=== PATIENT | female | born 1960 | race African-American/Black ===

== ENCOUNTER 2017-03-07 11:36 | Emergency (ER) | payer OTHER ==
[2017-03-07] MEDS ORDERED: IBUPROFEN 600 MG TABLET PO ONE (13:12)
--- NOTE | 2017-03-07 13:15 | ER Document Report ---
ED General - General Chief Complaint: Leg Pain Stated Complaint: LOWER BACK AND LEG PAIN Time Seen by Provider: 03/07/17 12:24 Mode of Arrival: Ambulatory Information source: Patient Notes: 56-year-old female presents to ED for complaint of leg and lower back pain when she fell Tuesday she has a history of a stroke with right-sided weakness for 5 days ago. She states she sometimes down. States she was a patient of [facility] which is she states closed and now she does not have a primary doctor. TRAVEL OUTSIDE OF THE [place] IN LAST 30 DAYS: No - HPI Onset: Other - Tuesday Onset/Duration: Gradual, Persistent, Worse Quality of pain: Sharp, Throbbing Severity: Severe Pain Level: 5 Associated symptoms: Body/muscle aches, Other - Ribs and right hip pain fall Exacerbated by: Movement, Walking Relieved by: Denies Similar symptoms previously: Yes Recently seen / treated by doctor: No Past Medical History - General Information source: Patient - Social History Smoking Status: Current Every Day Smoker Cigarette use (# per day): Yes - 3-4 cigarettes a day Chew tobacco use (# tins/day): No Smoking Education Provided: Yes - less Then 2 minutes Frequency of alcohol use: Occasional Drug Abuse: None Occupation: Disabled Lives with: Family Family History: Arthritis, CAD, CVA, Hyperlipidemia, Hypertension, Thyroid Disfunction. denies: COPD, Malignancy Patient has suicidal ideation: No Patient has homicidal ideation: No - Past Medical History Cardiac Medical History: Reports: Hx Hypertension Pulmonary Medical History: Reports: None Neurological Medical History: Reports: Hx Cerebrovascular Accident, Hx Migraine Endocrine Medical History: Reports: Hx Hypothyroidism Renal/ Medical History: Reports: None Malignancy Medical History: Reports: None GI Medical History: Denies: Hx Colonoscopy Musculoskeltal Medical History: Reports Hx Arthritis, Reports Hx Musculoskeletal Deformity, Reports Hx Musculoskeletal Trauma Skin Medical History: Reports None Psychiatric Medical History: Reports: None Traumatic Medical History: Reports: None Infectious Medical History: Reports: None Past Surgical History: Reports: Hx Hysterectomy - Immunizations Hx Diphtheria, Pertussis, Tetanus Vaccination: No Review of Systems - Review of Systems Constitutional: No symptoms reported EENT: No symptoms reported Cardiovascular: No symptoms reported Respiratory: No symptoms reported Gastrointestinal: No symptoms reported Genitourinary: No symptoms reported Female Genitourinary: No symptoms reported Musculoskeletal: Back pain, Joint pain, Muscle pain, Muscle stiffness Skin: No symptoms reported Hematologic/Lymphatic: No symptoms reported Neurological/Psychological: No symptoms reported -: Yes All other systems reviewed and negative Physical Exam - Vital signs Vitals: Temp Pulse Resp BP Pulse Ox 98.1 F 75 20 150/74 H 94 03/07/17 11:45 03/07/17 11:45 03/07/17 11:45 03/07/17 11:45 03/07/17 11:45 Interpretation: Normal - General General appearance: Appears well, Alert - HEENT Head: Normocephalic, Atraumatic Eyes: Normal Pupils: PERRL - Respiratory Respiratory status: No respiratory distress Chest status: Nontender Breath sounds: Normal Chest palpation: Normal - Cardiovascular Rhythm: Regular Heart sounds: Normal auscultation Murmur: No - Abdominal Inspection: Normal Distension: No distension Bowel sounds: Normal Tenderness: Nontender Organomegaly: No organomegaly - Back Back: Normal, Tender - Right lateral mid back. No: Deformity/step-off, CVA tenderness, Vertebra tenderness, Scars, Scoliosis, Wounds - Extremities General upper extremity: Normal inspection, Nontender, Normal color, Normal ROM , Normal temperature General lower extremity: Normal inspection, Normal color, Normal temperature. No: Bebeto's sign Hip: Tender, Pain with ROM - Neurological Neuro grossly intact: Yes Cognition: Normal Orientation: AAOx4 [place] Coma Scale Eye Opening: Spontaneous [place] Coma Scale Verbal: Oriented Rian Coma Scale Motor: Obeys Commands Rian Coma Scale Total: 15 Speech: Normal Motor strength normal: LUE, RUE, LLE, RLE Sensory: Normal - Psychological Associated symptoms: Normal affect, Normal mood - Skin Skin Temperature: Warm Skin Moisture: Dry Skin Color: Normal Course - Re-evaluation Re-evalutation: 03/07/17 14:22 discussed xray results with patient and written report given to patient. Patient treated with Ibuprofen and percocet in the ed and sent home with small prescription for percocet. - Vital Signs Vital signs: Temp Pulse Resp BP Pulse Ox 97.6 F 62 16 149/82 H 100 03/07/17 14:47 03/07/17 14:47 03/07/17 14:47 03/07/17 14:47 03/07/17 14:47 - Diagnostic Test Radiology reviewed: Image reviewed, Reports reviewed Discharge - Discharge Clinical Impression: Fall at home Qualifiers: Encounter type: initial encounter Qualified Code(s): W19.XXXA - Unspecified fall, initial encounter Contusion of rib on right side Qualifiers: Encounter type: initial encounter Qualified Code(s): S20.211A - Contusion of right front wall of thorax, initial encounter Contusion, hip Qualifiers: Encounter type: initial encounter Laterality: right Qualified Code(s): S70.01XA - Contusion of right hip, initial encounter Condition: Stable Disposition: HOME, SELF-CARE Instructions: Family Physicians / Practices Additional Instructions: CONTUSION: Your injury has resulted in a contusion -- a crushing of the deep tissues. No injury to important structures was detected during the physician's exam. Contusions vary in the amount of pain they cause, and in the length of time required for healing. Typically, the area will become bruised, and will remain painful to touch for two or three weeks. However, most patients are back to working and playing within a few days. After the initial period of rest and cold-packs, your symptoms (together with the doctor's recommendations) will determine how rapidly you can get back to full activity. Usually this means "do what feels okay, but don't do things that hurt." If re-examination was recommended, it's important to follow up as instructed. Call the doctor or return any time if pain increases, if swelling becomes severe, if you develop numbness or weakness in an injured extremity, or if any other alarming symptoms occur. USE OF TYLENOL (ACETAMINOPHEN): Acetaminophen may be taken for pain relief or fever control. It's much safer than aspirin, offering a wider range of "safe" dosages. It is safe during . Some brand names are Tylenol, Panadol, Datril, Anacin 3, Tempra, and Liquiprin. Acetaminophen can be repeated every four hours. The following are maximum recommended dosages: WEIGHT Dose Drops Elixir Chewable( 80mg) (LBS.) drprs=droppers tsp=teaspoon 6 40 mg 0.4 ml (1/2) 6-11 80 mg 0.8 ml (full) tsp 1 tab 12-16 120 mg 1 1/2 drprs 3/4 tsp 1 1/2 tabs 17-23 160 mg 2 drprs 1 tsp 2 tabs 24-30 240 mg 3 drprs 1 1/2 tsp 3 tabs 30-35 320 mg 2 tsp 4 tabs 36-41 360 mg 2 1/4 tsp 4 1/2 tabs 42-47 400 mg 2 1/2 tsp 5 tabs 48-53 480 mg 3 tsp 6 tabs 54-59 520 mg 3 1/4 tsp 6 1/2 tabs 60-64 560 mg 3 1/2 tsp 7 tabs 65-70 600 mg 3 3/4 tsp 7 1/2 tabs 71-76 640 mg 4 tsp 8 tabs 77-82 720 mg 4 1/2 tsp 9 tabs 83-88 800 mg 5 tsp 10 tabs >89 pounds or adults 650 mg to 900 mg Acetaminophen can be repeated every four hours. Maximum dose not to exceed 4000 mg a day. These maximum recommended dosages are slightly higher than the dosages written on the product container, but these dosages are very safe and below the toxic dosage for acetaminophen. ICE PACKS: Apply ice packs frequently against the painful area. Many different schedules are recommended, such as "20 minutes on, 20 minutes off" or "one hour ice, two hours rest." If you need to work, you may need to go longer between ice treatments. You should plan to have the area ice packed AT LEAST one fourth of the time. The ice should be applied over the wrap, tape, or splint, or over a layer of cloth -- not directly against the skin. Some ice bags have a built-in cloth and can be put directly on the skin. WARM PACKS: After approximately two days, apply gentle heat (such as a heating pad or hot water bottle) for about 20 to 30 minutes about every two hours -- at least four times daily. Warmth and elevation will help you make a more rapid recovery , and will ease the pain considerably. Do not use HOT heat, and never apply heat for longer than 30 minutes. The continuous heat can invisibly damage skin and muscles -- even when no burn is seen on the surface. Damaged muscles can make you MORE sore. ORAL NARCOTIC MEDICATION: You have been given a prescription for pain control. This medication is a narcotic. It's best taken with food, as nausea can result if taken on an empty stomach. Don't operate machinery or drive within six hours of taking this medication. Do not combine this medicine with alcohol, or with any medication which can cause sedation (such as cold tablets or sleeping pills) unless you get permission from the physician. Narcotics tend to cause constipation. If possible, drink plenty of fluids and eat a diet high in fiber and fruits. FOLLOW-UP CARE: If you have been referred to a physician for follow-up care, call the physician s office for an appointment as you were instructed or within the next two days. If you experience worsening or a significant change in your symptoms, notify the physician immediately or return to the Emergency Department at any time for re-evaluation. Prescriptions: Oxycodone HCl/Acetaminophen [Percocet 5-325 mg Tablet] 1 tab PO Q6HP PRN #7 tablet PRN Reason: Forms: Elevated Blood Pressure, Smoking Cessation Education
--- NOTE | 2017-03-07 13:40 | RADIOLOGY REPORT (SQ) ---
EXAM DESCRIPTION: RIBS RIGHT W/PA CHEST COMPLETED DATE/TIME: 03/07/2017 1:18 pm REASON FOR STUDY: fall with pain COMPARISON: None. TECHNIQUE: Frontal view of the chest and additional views of the right ribs acquired. NUMBER OF VIEWS: Four view. LIMITATIONS: None. FINDINGS: FRONTAL CXR: No pneumothorax. No pleural effusion. No atelectasis or infiltrates. RIBS: No displaced rib fractures. No lytic or blastic bony lesions. OTHER: No other significant finding. IMPRESSION: NO PNEUMOTHORAX. NO DISPLACED RIB FRACTURES. COMMENT: SITE OF TRAUMA/COMPLAINT MARKED/STAMP COMPLETED: YES. TECHNICAL DOCUMENTATION: JOB ID: [id number] [employer]- All Rights Reserved
--- NOTE | 2017-03-07 13:40 | RADIOLOGY REPORT (SQ) ---
EXAM DESCRIPTION: HIP RIGHT AP/LATERAL COMPLETED DATE/TIME: 03/07/2017 1:18 pm REASON FOR STUDY: fall with pain COMPARISON: None. NUMBER OF VIEWS: Two views. TECHNIQUE: AP pelvis and additional frog-leg view of the right hip. LIMITATIONS: None. FINDINGS: MINERALIZATION: Normal. RIGHT HIP: No fracture or dislocation. No worrisome bone lesions. LEFT HIP: No fracture or dislocation. No worrisome bone lesions. PUBIS AND ISCHIUM: No fracture. PELVIS: No fracture. SACRUM: No fracture or dislocation. No worrisome bone lesions. LOWER LUMBAR SPINE: No fracture or dislocation. No worrisome bone lesions. No significant disc disea se. SOFT TISSUES: No findings. OTHER: No other significant finding. IMPRESSION: NEGATIVE STUDY OF THE RIGHT HIP. NO RADIOGRAPHIC EVIDENCE OF ACUTE INJURY. TECHNICAL DOCUMENTATION: JOB ID: [id number] [employer]- All Rights Reserved
[2017-03-07] MEDS ORDERED: OXYCODONE-ACETAMINOPHEN 5-325 MG TABLET PO ONE (14:08)
[2017-03-07 14:53] VITALS: BP 149/82
== END 2017-03-07 14:50 | disposition home or self-care (01) ==
LOC: ER 11:36
DX: S70.01XA Contusion of right hip, initial encounter (principal); S20.211A Contusion of right front wall of thorax, initial encounter; M79.604 Pain in right leg; M54.5 Low back pain; W19.XXXA Unspecified fall, initial encounter; F17.210 Nicotine dependence, cigarettes, uncomplicated
CPT/HCPCS: 99283

== ENCOUNTER 2017-03-10 13:30 | Emergency (ER) | payer OTHER ==
[2017-03-10 13:43] VITALS: BP 187/71
--- NOTE | 2017-03-10 14:16 | ER Document Report ---
ED Medical Screen (RME) - General Chief Complaint: Hip Pain Stated Complaint: RIGHT SIDE PAIN Time Seen by Provider: 03/10/17 14:00 Mode of Arrival: Ambulatory Information source: Patient Notes: 56-year-old female presents to ED for continued pain in her right hip and right side. She was seen on March 07, 2017 for a fall on Tuesday where she states she had pain in her right ribs and hip and back. X-rays of the lives and back were negative but patient states she is having more pain not rest. Patient states that the pain is getting worse each day. She was prescribed Percocet every 6 hours. She states she also has some blood when she wipes. I have greeted and performed a rapid initial assessment of this patient. A comprehensive ED assessment and evaluation of the patient, analysis of test results and completion of medical decision making process will be conducted by an additional ED providers. TRAVEL OUTSIDE OF THE [place] IN LAST 30 DAYS: No - Related Data Allergies/Adverse Reactions: No Known Allergies Allergy (Unverified 03/10/17 13:39) Past Medical History - Past Medical History Cardiac Medical History: Reports: Hx Hypertension Neurological Medical History: Reports: Hx Cerebrovascular Accident, Hx Migraine Endocrine Medical History: Reports: Hx Hypothyroidism Renal/ Medical History: Denies: Hx Peritoneal Dialysis GI Medical History: Denies: Hx Colonoscopy Musculoskeltal Medical History: Reports Hx Arthritis, Reports Hx Musculoskeletal Deformity, Reports Hx Musculoskeletal Trauma Past Surgical History: Reports: Hx Hysterectomy - Immunizations Hx Diphtheria, Pertussis, Tetanus Vaccination: No Physical Exam - Vital signs Vitals: Temp Pulse Resp BP Pulse Ox 98.4 F 80 20 187/71 H 97 03/10/17 13:39 03/10/17 13:39 03/10/17 13:39 03/10/17 13:39 03/10/17 13:39 Course - Vital Signs Vital signs: Temp Pulse Resp BP Pulse Ox 98.4 F 80 20 187/71 H 97 03/10/17 13:39 03/10/17 13:39 03/10/17 13:39 03/10/17 13:39 03/10/17 13:39
[2017-03-10 14:44] LABS: AMORPHOUS SEDIMENT,URINE TRACE /HPF; APPEARANCE,URINE CLOUDY; BILIRUBIN,URINE NEGATIVE (NEGATIVE); GLUCOSE, URINE NEGATIVE (NEGATIVE); KETONES,URINE NEGATIVE (NEGATIVE); LEUKOCYTE ESTERASE,URINE NEGATIVE (NEGATIVE); NITRITE,URINE NEGATIVE (NEGATIVE); PROTEIN,URINE NEGATIVE (NEGATIVE); URINE SPECIFIC GRAVITY 1.017; UROBILINOGEN,URINE NEGATIVE mg/dL (<2.0)
--- NOTE | 2017-03-10 15:04 | RADIOLOGY REPORT (SQ) ---
EXAM DESCRIPTION: U/S RETROPERITON (RENAL/AORTA) COMPLETED DATE/TIME: 03/10/2017 2:49 pm REASON FOR STUDY: right flank pain after fall COMPARISON: None. TECHNIQUE: Dynamic and static grayscale images acquired of the kidneys and bladder and recorded on P ACS. Additional selected color Doppler and spectral images recorded. LIMITATIONS: None. FINDINGS: RIGHT KIDNEY: Normal size, 10.4 cm. Normal echogenicity. No solid or suspicious masses. No hydronephrosis. No calcifications. LEFT KIDNEY: Normal size, 10.9 cm. Normal echogenicity. No solid or suspicious masses. No hydronephr osis. No calcifications. BLADDER: No masses. Ureteral jets were not seen. OTHER FINDINGS: No other significant finding. IMPRESSION: NORMAL RENAL AND BLADDER ULTRASOUND. TECHNICAL DOCUMENTATION: JOB ID: [id number] [employer]- All Rights Reserved
[2017-03-10] MEDS ORDERED: OXYCODONE-ACETAMINOPHEN 5-325 MG TABLET PO ONE (15:05)
[2017-03-10] MEDS ORDERED: LIDOCAINE 5% (700 MG) TRANSDERMAL ADH..PATCH TP ONE (15:06)
--- NOTE | 2017-03-10 15:07 | ER Document Report ---
HPI - HPI Patient complains to provider of: r lower back pain Onset: Other - 3 days Onset/Duration: Persistent Quality of pain: Achy Pain Level: 5 Context: Patient states that she slipped on a step and fell down 2 steps hitting her back on the stair. Patient states that she fell 3 days ago. Patient was evaluated emergency department after the fall and had negative x-rays of the ribs, hip and pelvis area. Patient does report cough for the past month. States that she ran out of her pain medication which was managing her pain symptoms. Patient denies any new injury. Patient states she does have a follow -up appointment with her primary doctor next week. Patient without any dyspnea or chest pain. Patient without any loss of consciousness. Associated Symptoms: Other - back pain. denies: Headache Exacerbated by: Movement Relieved by: Denies Similar symptoms previously: No Recently seen / treated by doctor: Yes - ROS ROS below otherwise negative: Yes Systems Reviewed and Negative: Yes All other systems reviewed and negative - CONSTITUTIONAL Constitutional: DENIES: Fever - NEURO Neurology: DENIES: Headache, Weakness - RESPIRATORY Respiratory: DENIES: Trouble Breathing, Coughing - GASTROINTESTINAL Gastrointestinal: DENIES: Abdominal Pain, Nausea - URINARY Urinary: DENIES: Frequency - REPRODUCTIVE Reproductive: DENIES: : - MUSCULOSKELETAL Musculoskeletal: REPORTS: Back Pain. DENIES: Extremity pain, Neck Pain - DERM Skin Color: Normal Skin Problems: None Past Medical History - General Information source: Patient - Social History Smoking Status: Current Every Day Smoker Frequency of alcohol use: Occasional Drug Abuse: None Occupation: none Lives with: Family Family History: Arthritis, CAD, CVA, Hyperlipidemia, Hypertension, Thyroid Disfunction. denies: COPD, Malignancy Patient has suicidal ideation: No Patient has homicidal ideation: No - Past Medical History Cardiac Medical History: Reports: Hx Hypertension Neurological Medical History: Reports: Hx Cerebrovascular Accident, Hx Migraine Endocrine Medical History: Reports: Hx Hypothyroidism Renal/ Medical History: Denies: Hx Peritoneal Dialysis GI Medical History: Denies: Hx Colonoscopy Musculoskeltal Medical History: Reports Hx Arthritis, Reports Hx Musculoskeletal Deformity, Reports Hx Musculoskeletal Trauma Past Surgical History: Reports: Hx Hysterectomy - Immunizations Hx Diphtheria, Pertussis, Tetanus Vaccination: No Vertical Provider Document - CONSTITUTIONAL Agree With Documented VS: Yes Exam Limitations: No Limitations General Appearance: WD/WN, No Apparent Distress - INFECTION CONTROL TRAVEL OUTSIDE OF THE [place] IN LAST 30 DAYS: No - HEENT HEENT: Atraumatic, Normal ENT Exam, Normocephalic - NECK Neck: Normal Inspection, Supple. negative: Lymphadenopathy-Left, Lymphadenopathy-Right - RESPIRATORY Respiratory: Breath Sounds Normal, No Respiratory Distress, Chest Non-Tender. negative: Rales, Rhonchi, Wheezing O2 Sat by Pulse Oximetry: 97 - CARDIOVASCULAR Cardiovascular: Regular Rate, Regular Rhythm, No Murmur - GI/ABDOMEN Gastrointestinal: Abdomen Soft, Abdomen Non-Tender, No Organomegaly - BACK Back: CVA Tenderness-Right Notes: Right thoracolumbar tenderness, no ecchymosis, no crepitus, no subcutaneous emphysema., - MUSCULOSKELETAL/EXTREMETIES Musculoskeletal/Extremeties: CAMERON ALCANTAR - NEURO Level of Consciousness: Awake, Alert Motor/Sensory: No Motor Deficit, No Sensory Deficit - DERM Integumentary: Warm, No Rash Course - Re-evaluation Re-evalutation: 03/10/17 16:[address] Valerio regarding patient presentation as well as diagnostic test results from today's visit as well as ER visit from 3 days ago. Recommend outpatient follow-up with her primary doctor for recheck. Patient states that she has an appointment with her doctor in 1 week. Patient states that she has been out of her blood pressure medicine for 3 months but is uncertain what she takes for her blood pressure medication would like a refill today. - Vital Signs Vital signs: Temp Pulse Resp BP Pulse Ox 98.4 F 80 20 187/71 H 97 03/10/17 13:39 03/10/17 13:39 03/10/17 13:39 03/10/17 13:39 03/10/17 13:39 - Diagnostic Test Radiology reviewed: Reports reviewed Discharge - Discharge Clinical Impression: Low back pain Qualifiers: Chronicity: unspecified Back pain laterality: right Sciatica presence: without sciatica Qualified Code(s): M54.5 - Low back pain Condition: Stable Disposition: HOME, SELF-CARE Instructions: Low Back Pain ([facility]), Ultram ([facility]) Additional Instructions: Return immediately for any new or worsening symptoms Followup with your primary care provider, call tomorrow to make a followup appointment Prescriptions: Tramadol HCl [Ultram 50 mg Tablet] 50 mg PO ASDIR PRN #12 tablet PRN Reason: Forms: Elevated Blood Pressure Referrals: [facility] [Provider Group] - Follow up as needed [facility] [Provider Group] - Follow up as needed
--- NOTE | 2017-03-10 16:02 | RADIOLOGY REPORT (SQ) ---
EXAM DESCRIPTION: CHEST PA/LAT COMPLETED DATE/TIME: 03/10/2017 3:44 pm REASON FOR STUDY: fall, r lower rib pain, cough COMPARISON: July 2013 EXAM PARAMETERS: NUMBER OF VIEWS: two views TECHNIQUE: Digital Frontal and Lateral radiographic views of the chest acquired. RADIATION DOSE: NA LIMITATIONS: none FINDINGS: LUNGS AND PLEURA: No opacities, masses or pneumothorax. No pleural effusion. MEDIASTINUM AND HILAR STRUCTURES: No masses or contour abnormalities. HEART AND VASCULAR STRUCTURES: Heart normal size. No evidence for failure. BONES: No acute findings. HARDWARE: None in the chest. OTHER: No other significant finding. IMPRESSION: NO SIGNIFICANT RADIOGRAPHIC FINDING IN THE CHEST. TECHNICAL DOCUMENTATION: JOB ID: [id number] [email or web address]- All Rights Reserved
== END 2017-03-10 17:37 | disposition home or self-care (01) ==
LOC: ER 13:30
DX: M54.5 Low back pain (principal); W10.9XXA Fall (on) (from) unspecified stairs and steps, initial encounter; I10 Essential (primary) hypertension; F17.200 Nicotine dependence, unspecified, uncomplicated
CPT/HCPCS: 71020; 76770; 81001; 99284

== ENCOUNTER → 2020-01-08 | Outpatient (CLI) | payer OTHER ==
--- NOTE | 2020-01-08 12:26 | RADIOLOGY REPORT (SQ) ---
EXAM DESCRIPTION: VENOUS BILATERAL LOWER IMAGES COMPLETED DATE/TIME: 01/08/2020 11:44 am REASON FOR STUDY: EDEMA R22.43 LOCALIZED SWELLING, MASS AND LUMP, LOWER LIMB, BILATE COMPARISON: None. TECHNIQUE: Dynamic and static mares scale and color images acquired of both lower extremity venous sy stems. Selected spectral images acquired with additional compression and augmentation maneuvers. Imag es stored on PACS. LIMITATIONS: None. FINDINGS: RIGHT LEG COMMON FEMORAL AND FEMORAL: Normal phasicity, compression and augmentation. No visualized echogenic m aterial on mares scale. No defects on color images. POPLITEAL: Normal compression and augmentation. No visualized echogenic material on mares scale. No de fects on color images. CALF VESSELS: Normal compression and augmentation. No visualized echogenic material on mares scale. No defects on color image. GSV AND SSV: Normal compression. No visualized echogenic material on mares scale. No defects on color images. ANY DEEP VENOUS INSUFFICIENCY: Not evaluated. ANY EVIDENCE OF POPLITEAL CYST: No. OTHER: No other significant finding. LEFT LEG COMMON FEMORAL AND FEMORAL: Normal phasicity, compression and augmentation. No visualized echogenic m aterial on mares scale. No defects on color images. POPLITEAL: Normal compression and augmentation. No visualized echogenic material on mares scale. No de fects on color images. CALF VESSELS: Normal compression and augmentation. No visualized echogenic material on mares scale. No defects on color images. GSV AND SSV: Normal compression. No visualized echogenic material on mares scale. No defects on color images. ANY DEEP VENOUS INSUFFICIENCY: Not evaluated. ANY EVIDENCE POPLITEAL CYST: No. OTHER: No other significant finding. IMPRESSION: NO EVIDENCE DVT OR SVT IN EITHER LEG. TECHNICAL DOCUMENTATION: JOB ID: [id number] [employer]- All Rights Reserved Reading location - IP/workstation name: [email or web address]
== END ==
LOC: SP 10:42
PROVIDERS: ATTEND Internal Medicine
DX: R22.43 Localized swelling, mass and lump, lower limb, bilateral (principal)
CPT/HCPCS: 93970

== ENCOUNTER → 2020-08-22 | Outpatient (CLI) | payer OTHER ==
--- NOTE | 2020-08-22 16:48 | RADIOLOGY REPORT (SQ) ---
EXAM DESCRIPTION: KNEE RIGHT 2 VIEWS IMAGES COMPLETED DATE/TIME: 08/22/2020 2:26 pm REASON FOR STUDY: (M25.561)PAIN IN RIGHT KNEE M25.561 PAIN IN RIGHT KNEE COMPARISON: None. NUMBER OF VIEWS: Three views TECHNIQUE: AP, lateral, and oblique radiographic images acquired of the right knee. LIMITATIONS: None. FINDINGS: MINERALIZATION: Normal. BONES: No acute fracture or dislocation. No worrisome bone lesions. JOINT: No effusion. SOFT TISSUES: No soft tissue swelling. No radio-opaque foreign body. OTHER: No other significant finding. IMPRESSION: No radiographic abnormality of the right knee. TECHNICAL DOCUMENTATION: JOB ID: [id number] [employer]- All Rights Reserved Reading location - IP/workstation name: [email or web address]
== END ==
LOC: RAD 15:08
PROVIDERS: ATTEND Internal Medicine
DX: M25.561 Pain in right knee (principal)